=== PATIENT | female | born 1975 | race Caucasian/White ===

== ENCOUNTER 2023-01-15 09:00 | Emergency (ER) | payer MEDICAID ==
[~2023-01-15] VITALS: Ht 170.2 cm; Wt 77.2 kg
[2023-01-15] MEDS ORDERED: ketorolac tromethamine 15mg/ml inj. IM ONE (10:05)
[2023-01-15 10:56] VITALS: BP 124/88
== END 2023-01-15 10:58 | disposition home or self-care (01) ==
LOC: ER 09:01
DX: S40.211A Abrasion of right shoulder, initial encounter (principal); W18.39XA Other fall on same level, initial encounter; Y93.89 Activity, other specified; Y92.89 Other specified places as the place of occurrence of the external cause; Y99.8 Other external cause status
CPT/HCPCS: 73030; 96372; 99284; J1885

== ENCOUNTER 2023-02-23 09:23 | Outpatient (CLI) | payer MEDICAID ==
[2023-02-23] VITALS (20 sets, daily range): BP systolic 106–139; BP diastolic 69–104
== END 2023-02-23 23:59 | disposition home or self-care (01) ==
LOC: CARD DIAG 09:23
PROVIDERS: ATTEND Nurse Practitioner Family
DX: I95.1 Orthostatic hypotension (principal); R42 Dizziness and giddiness; E78.5 Hyperlipidemia, unspecified
CPT/HCPCS: 93660